=== PATIENT | female | born 1960 | race Two or more races ===

== ENCOUNTER 2020-07-17 15:04 | Emergency (ER) | payer MEDICAID, OTHER ==
[~2020-07-17] VITALS: Ht 168.9 cm; Wt 113.1 kg
[2020-07-17 15:07] VITALS: BP 175/114
--- NOTE | 2020-07-17 15:35 | NUR ---
pt out to imaging no signs or symptoms of acute dsitress noted respiraitons even and unlabored
--- NOTE | 2020-07-17 16:05 | NUR ---
pt back from imaging in bed with no signs or symptoms of acute distress noted respirations even and unlabored call light in hand
== END 2020-07-17 17:09 | disposition home or self-care (01) ==
LOC: ED 17:00
DX: S39.012A Strain of muscle, fascia and tendon of lower back, initial encounter (principal); S80.02XA Contusion of left knee, initial encounter; M51.36 Other intervertebral disc degeneration, lumbar region; I10 Essential (primary) hypertension; V49.49XA Driver injured in collision with other motor vehicles in traffic accident, initial encounter; Y93.89 Activity, other specified; Y92.410 Unspecified street and highway as the place of occurrence of the external cause; Y99.8 Other external cause status
CPT/HCPCS: 72110; 99284